=== PATIENT | male | born 1970 | race Caucasian/White ===

== ENCOUNTER 2021-06-05 10:09 | Day surgery (SDC) | payer SELFPAY, OTHER ==
[2021-06-05] VITALS (7 sets, daily range): BP systolic 105–122; BP diastolic 68–84; PULSE 94–111; RESP 16; TEMP 36.6–37.2; O2SAT 96–98; BMI 22.8
[2021-06-05] MEDS: Lactated Ringers 1,000 ML 15 ML IV (10:20)
--- NOTE | 2021-06-05 10:40 | HP.PCM_ITS ---
History and Physical Date of Admission: 06/05/21 Date of Service: 05/28/21 MR#:[id number]: DRAKE WASHINGTONRep #:[id number]:[id number] Provider:Dr. Maggy Ayala MDAge/Sex: 51/M [facility] Int[facility] Vital Signs 05/28/21 14:58 Height 5 ft 9 in Weight: 161 lb 2 oz BMI 23.8 BP 120/76 Blood Pressure Location Rt brachial Position Sitting Respiration 16 Pulse 98 Pulse Source Monitor Temp 97.9 F Temp Source Temporal Pulse Oximetry (%) 96 Oxygen Delivery Method room air Intake Visit Reasons: PORT PLACEMENT Chief Complaint: Port Placement Biological Lab Technician Required: No Is patient in pain?: No Allergies No Known Allergies Allergy (Verified 05/28/21 15:01) Medications ferrous sulfate 325 mg (65 mg iron) tablet 325 mg PO DAILY 05/28/21 [History Confirmed 05/28/21] folic acid 1 mg tablet 1 mg PO DAILY 05/28/21 [History Confirmed 05/28/21] pantoprazole 40 mg tablet,delayed release 40 mg PO DAILY 05/28/21 [History Confirmed 05/28/21] PFSH Medical History (Updated 05/28/21 @ 15:[address] Maggy Ayala MD) B-cell lymphoma Surgical History (Updated 05/28/21 @ 15:[address] Maggy Ayala MD) H/O laparoscopy Family History (Updated 05/28/21 @ 14:56 by Ivory Friday) Mother Colon cancer Social History (Updated 05/28/21 @ 14:56 by Ivory Friday) Smoking Status: Former smoker alcohol intake: never substance use type: does not use HPI HPI HPI: DRAKE WASHINGTON, is a 51 M who presents to the office today for port placement due to B cell lymphoma. Previous biopsy was done of the splenic and pancreatic mass area. Patient is meeting with oncology on Friday?Dr. Pillai with [facility]. Patient states he does have some abdominal pain in the left upper quadrant but it is tolerable/controlled with meds ROS General General: Yes weight change and fatigue; No appetite, colon cancer or breast cancer HEENT HEENT: No difficulty swallowing, eye injury, eye surgery, swollen glands or hoarseness Endo Endocrine: No thyroid disease, diabetes mellitus, thyroid cancer, Hair loss, heat intolerance or cold intolerance Skin Skin: No rash or changing moles Musc Musculoskeletal: No back problems, arthritis, rheumatoid arthritis, gout or joint pain Cardio Cardiovascular: No murmur, pacemaker, heart disease, atrial fibrillation, high blood pressure, heart attack, heart stent, palpitations, shortness of breat with exertion or chest pain Psych Psychiatric: No depression, anxiety or hearing voices Resp Respiratory: No shortness of breath, No sleep apnea, No cough, No COPD, No asthma, No emphysema and No wheezing Gastro Gastrointestinal: Yes abdominal pain, No nausea or vomiting, No diarrhea, No constipation, No blood in stool, No acid reflux, No hemorrhoids, No ulcers, No gallbladder problem and No black,tarry stools Abran Hematologic: No blood thinners, No blood disorders, No bleeding, Yes anemia and No blood clots Neuro Neurologic: No abnormal speech and No confusion Exam Const General: cooperative, healthy appearing, comfortable and no acute distress Neck Neck: normal visual inspection Chest Other: Upper inspection and palpation of bilateral chest normal Resp Effort & Inspection: normal respiratory effort Cardio Rate: regular rate GI Inspection: non-distended Palpation: soft and tender in the LUQ Skin General: no rashes or lesions noted Neuro General: patient oriented x3 Psych Affect: normal affect COVID (Procedure Consent) Procedure Criteria Procedure Criteria: Yes Elective The surgeon/proceduralist and patient have discussed in detail the risk of exposure to and/or potential harm posed by the COVID-19 virus with having a surgery/procedure at this time versus the risk of delaying the surgery/procedure. It is not possible to know either the risk of delaying the surgery or procedure or chance of getting an infection with perfect accuracy, but a joint decision was made between the patient and the surgeon/proceduralist to proceed at this time with the scheduled surgery/procedure as indicated on the consent form. Assessment and Plan Assessment and Plan (1) Encounter for insertion of venous access port: Status: Acute (2) B-cell lymphoma: Status: Acute Plan - Dr. Maggy Ayala MD: I have discussed above with the patient- Port-a-Cath placement. Right possible left, scheduled for 05/29/2021 Patient has been counseled as to the risks/benefits of the procedure. I have explained the risks of the surgery, including but not limited to: infection, bleeding, injury to any blood vessels/nerves, injury to lungs (such as pneumothorax or hemothorax and need for chest tube), not having any access, nonfunctioning of port due to thrombosis, infection of port, etc. the patient understands and agrees to proceed. I have answered all the patient's questions to the patient?s satisfaction and the patient has no further questions. Maggy Ayala M.D. Pager: [phone] [facility] [address] [place] [address], [address] [place] [address] Office: [phone] Plan Details Follow Up: We will schedule port for tomorrow. Coding Level of Care Code Off vis,new,level 3 Diagnoses Encounter for insertion of venous access port Z45.2 B-cell lymphoma C85.10 05/28/21 1524<Electronically signed by Maggy Ayala MD>Date Maggy Ayala MD
[2021-06-05] MEDS: Cefazolin 2 GM in 0.9% Normal Saline 100 ML IV (11:40)
[2021-06-05] MEDS: Lidocaine 1%/Epi 1:200 (30ml) 30 ML AMPUL (12:00)
--- NOTE | 2021-06-05 12:16 | RAD_ITS ---
STUDY: X-RAY CHEST REASON FOR EXAM: Male, 51 years old. Port -- pacu TECHNIQUE: Single AP portable view of the chest. COMPARISON: None. FINDINGS: A right-sided Port-A-Cath has been placed. The tip is at the junction of the superior vena cava and right atrium. EKG electrodes are seen. There is blunting of the left costophrenic angle. Mild increased markings at the left lung base. Normal size heart. Normal mediastinum and jose e. Normal visualized pulmonary arteries. Normal visualized aortic arch and descending thoracic aorta. Normal visualized thoracic spine. Normal visualized ribs, clavicles, and shoulders. There is no demonstrated abnormality of the visualized soft tissue structures of the upper abdomen. RAD/CXR for Line Placement IMPRESSION: The tip of the sebas catheter is at the junction of the superior vena cava and right atrium. Blunting of the left costophrenic angle with mild left basilar atelectasis. Electronically Signed: Chiki Orozco MD at 13:18 EST ,
--- NOTE | 2021-06-05 12:16 | PCM.OPRPT ---
Report of Operation Date of Procedure: 06/05/21 Pre-Operative Diagnosis: Z 45.2, B-cell lymphoma Post-Operative Diagnosis: Same Surgery/Procedure Performed:: 1. Placement of right IJ Port-A-Cath 2. Use of fluoroscopy 3. Use of ultrasound Surgeon: Maggy Ayala Type of Anesthesia: Local MAC Anesthesiologist: Elroy Padilla Special Medications: ancef 2 gram IV x 1 Specimen's removed: none Estimated Blood Loss (mL): minimal Description of Procedure: After informed consent was given, the patient was brought to the operating room and placed in the supine position. Appropriate time out protocol was followed. Patient was then given IV conscious sedation for anesthesia. The patient's right upper chest and neck were then prepped with a surgical skin preparation and sterile surgical drapes were placed. After proper landmarks were ascertained, the skin at the upper right chest area was then infiltrated with 1:1 mixture of 1% lidocaine with epinephrine and 0.5% marcaine. A needle trocar was then inserted into the right internal jugular vein with ultrasound guidance-multiple vessels were viewed with u/s and the right IJ was chosen-- and there was good aspiration of venous blood. A wire was then threaded into the needle trocar and this was visualized under fluoroscopy to ensure that the wire was in the superior vena cava. Once this was done, then the needle trocar was removed. A small skin mariah was made with an 11 blade knife at the wire entrance site. The dilator with the introducer sheath attached was then placed over the wire into the right internal jugular vein via the Seldinger technique and this was visualized under fluoroscopy. The dilator and sheath were in proper position as visualized by fluoroscopy. A subcutaneous pocket was then created caudad to the catheter insertion site. A transverse skin incision was made after the skin and subcutaneous tissues were infiltrated with local anesthetic. Blunt dissection was then used to create a space large enough for placement of the subcutaneous port. The catheter was then tunneled into the subcutaneous pocket. The wire and dilator were then removed. The catheter was then threaded into the introducer sheath and was positioned with its tip at the junction of the superior vena cava and the right atrium as visualized under fluoroscopy. The excess catheter was transected. The catheter was then attached to the subcutaneous port using manufacturers guidelines. The catheter was flushed with a heparin saline mixture prior to placement. Hemostasis was carefully controlled with electrocautery. The port was sutured to the subcutaneous fascia using 2-0 Vicryl suture at two sites. The port was then placed in the subcutaneous pocket. The incision were reapproximated with interrupted subdermal 3-0 vicryl sutures. The skin was reapproximated with 3-0 nylon suture in a interrupted fashion. Steristrips were used for reinforcement of the skin closure at IJ insertion site and a sterile opsite dressings were applied. The patient tolerated the procedure well. Implants Used: [employer] PowerPort isp M.[employer].I. 6Fr Lot [id number]
--- NOTE | 2021-06-05 12:25 | EX.PCM.DISCH ---
Discharge Instructions Procedure Port-A-Cath Diet Discharge Diet: Light diet - advance as tolerated Activity May shower in (days): 5 (Keep port site clean and dry x5 days. Neck incision okay to get wet after 1 day. Okay to lower shower and upper sponge bath. OR okay to taper off port site with a Ziploc bag to shower) Lifting Restrictions: No lifting > 15 pounds for 3 days with the arm on the side of the port Dressing / Incision Call your doctor if your incision/area has: Continuous Slow Oozing, Sudden Increased Bleeding, Increased Pain/ Swelling, Increased Redness, Foul Smelling Discharge and Swelling at the incision site Call your doctor if you observe: Fever of 101 or Higher Change Dressing in: 2 days Follow Up Care Please Follow Up With: Maggy Ayala MD When: In 10 days for permanent suture removal?call office for appointment Test Results: Test results from this visit will be discussed in further detail at your follow-up appointment, if applicable. Discharge Plan Admission Attending Provider: Maggy Ayala Primary Care Provider: Jamie Swanson Discharge Orders/Prescriptions Prescriptions: Continued pantoprazole 40 mg tablet,delayed release (DR/EC) 40 mg PO QHS RF: 0 folic acid 1 mg tablet 1 mg PO DAILY RF: 0 ferrous sulfate 325 mg (65 mg iron) tablet 325 mg PO DAILY RF: 0 Referrals / Follow Up: Jamie Swanson MD [Primary Care Provider] - Disposition Disposition (needs filled in before D/C Order can be placed): Home, Self Care
== END 2021-06-05 23:59 | disposition home or self-care (01) ==
LOC: SDC 10:11 → AC 10:11
PROVIDERS: Anesthesiology; PCP Orthopaedic Surgery; Referring Provider Surgery; Visit Provider Surgery
PROC: (CPT 36561; principal; 2021-06-05 12:00)
DX: Z45.2 Encounter for adjustment and management of vascular access device (principal); C85.10 Unspecified B-cell lymphoma, unspecified site; R16.1 Splenomegaly, not elsewhere classified; K21.9 Gastro-esophageal reflux disease without esophagitis; U07.1 COVID-19; K86.9 Disease of pancreas, unspecified; Z79.899 Other long term (current) drug therapy; Z87.891 Personal history of nicotine dependence
CPT/HCPCS: 36561; 00532; 71045; 77001; 87426; 87635; J7120; J2405; U0003; U0005